=== PATIENT | male | born 1955 | race African-American/Black ===

== ENCOUNTER 2021-04-24 00:27 | Inpatient (IN) | payer MEDICARE, OTHER ==
[2021-04-24] MEDS ORDERED: Dextrose 50% Abboject 50 ML SYRINGE ONE ×2 (00:37→01:32)
[2021-04-24] MEDS ORDERED: Ketamine 50 MG/ML (10ML VIAL) ONE (00:46)
[2021-04-24] MEDS ORDERED: Norepinephrine 8 MG/0.9% NS 250 ML ONE ×3 (00:54→08:47)
[2021-04-24 01:17] LABS: Actual Bicarbonate (HCO3a) 12.6 mEq/L (22-28); Analyzer IN Cardio ER; Base Excess (BEa) -13.5 mEq/L (-2.0 to +3.0); CO2 Tension 29.7 mmHg (35.0-45.0); Calcium, Ionized (arterial) 1.08 mmol/L (1.12-1.30); Carboxyhemoglobin (COHb) 0.3 gm% (0.0-3.0); Hemoglobin (Hb) 7.1 g/dL (14.0-18.0); O2 Tension (PaO2), arterial 158.9 mmHg (> 80.0); Potassium - ABG Lab 5.51 mmol/L (3.70-5.30)
[2021-04-24 01:19] LABS: pH, Arterial 7.24 (7.35-7.45)
[2021-04-24 01:20] LABS: ALV-art Gradient 160.475 mmHg (0-20); Puncture Site RFA
[2021-04-24] MEDS ORDERED: Sodium Bicarb 50 MEQ/50 ML Abboject 8.4% SYRINGE ONE (01:20)
[2021-04-24 01:24] LABS: ALT (SGPT) 79 U/L (8-55); AST (SGOT) 412 U/L (5-34); Alkaline Phosphatase 654 U/L (40-110); Anion Gap 32 mmol/L (10-20); BUN (Urea Nitrogen) 23 mg/dL (8.4-25.7); Bilirubin, Total 0.6 mg/dL (0.2-1.2); Calc. Creatinine Clearance 0 mL/min (70-130); Calcium 7.8 mg/dL (7.8-10.44); Carbon Dioxide 11 mmol/L (23-31); Chloride 97 mmol/L (98-107); Globulin 2.1 g/dL (2.4-3.5); Glucose 109 mg/dL (80-115); Protein, Total 4.1 g/dL (5.8-8.1); Sodium 133 mmol/L (136-145)
[2021-04-24] MEDS ORDERED: Vancomycin 1 GM/200 ML BAG ONE (01:27)
[2021-04-24 01:29] LABS: Anisocytosis SLIGHT = 6-15 cells (100X) (0-5/hpf); Band 15 % (5-11); Hemoglobin 6.3 g/dL (14.0-18.0); Lymphocytes 20 % (21-51); MDiff Complete? YES; Mean Corpuscular HGB CONC 30.7 g/dL (32.0-36.0); Mean Platelet Volume 6.3 fL (7.4-10.4); Monocytes 7 % (0-10); Neutrophil 58 % (42-75); Platelet Count 502 thou/uL (130-400); Platelet Morphology Comment Appears Increased; RBC Distribution Width 18.1 % (11.5-14.5); Red Blood Cell (RBC) Count 2.33 mill/uL (4.70-6.10); White Blood Cell (WBC) Count 19.3 thou/uL (4.8-10.8)
[2021-04-24 01:30] LABS: Potassium 6.8 mmol/L (3.5-5.1)
[2021-04-24] MEDS ORDERED: Calcium Chloride 1 GM/10 ML Abboject SYRINGE ONE (01:31)
[2021-04-24] MEDS ORDERED: Insulin Regular 300 UNITS/3 ML VIAL ONE (01:32)
[2021-04-24] MEDS ORDERED: Fentanyl CADD 100 ML IV SCH ×2 (01:45→03:45)
[2021-04-24 01:48] LABS: Bilirubin Negative (Negative); Blood, Urine Trace (Negative); Glucose, Urine (Dipstick) Negative (Negative); Ketone, Urine Negative (Negative); Leukocyte Trace (Negative); Nitrite Negative (Negative); Protein, Urine (Dipstick) Negative (Neg-Trace); Specific Gravity, Urine 1.015 (1.005-1.030); Urobilinogen 0.2 mg/dL (Less than 2); pH, Urine 5.5 (5.0-9.0)
[2021-04-24 01:55] LABS: Clarity Cloudy (Clear)
[2021-04-24 02:36] LABS: HBSAg Index 0.22 S/CO (0-0.99); Hep B Surf Ag Non-Reactive S/CO (NonReactive)
[2021-04-24] MEDS ORDERED: Cefepime 2 GM in Sodium Chloride 0.9% 100 ML IVPB SCH (02:45)
[2021-04-24] MEDS ORDERED: Ondansetron PF 4 MG/2 ML Vial IVP PRN (03:17)
[2021-04-24] MEDS ORDERED: Norepinephrine 8 MG/0.9% NS 250 ML IVPB PRN (03:17)
[2021-04-24] MEDS ORDERED: Acetaminophen 650 MG Suppository PR PRN (03:17)
[2021-04-24] MEDS ORDERED: Acetaminophen 325 MG TAB PO PRN (03:17)
[2021-04-24] MEDS ORDERED: Ondansetron ODT 4 MG TAB PO PRN (03:17)
[2021-04-24 03:27] LABS: Anion Gap 33 mmol/L (10-20); BUN (Urea Nitrogen) 24 mg/dL (8.4-25.7); Calc. Creatinine Clearance 0 mL/min (70-130); Calcium 8.7 mg/dL (7.8-10.44); Carbon Dioxide 11 mmol/L (23-31); Chloride 98 mmol/L (98-107); Glucose 120 mg/dL (80-115); Sodium 137 mmol/L (136-145)
[2021-04-24] MEDS ORDERED: Ventilator Sedation Protocol 1 EACH FS SCH (03:30)
[2021-04-24] MEDS ORDERED: Fentanyl BOLUS 250 ML IVPB PRN (03:45)
[2021-04-24] MEDS ORDERED: Propofol 1,000 MG/100 ML VIAL IV PRN (03:45)
[2021-04-24] MEDS ORDERED: Lorazepam 2 MG/ML VIAL SLOW IVP PRN (03:45)
[2021-04-24] MEDS ORDERED: Morphine 2 MG/ML VIAL SLOW IVP PRN (03:45)
[2021-04-24] MEDS ORDERED: DISCONTINUE PREVIOUS NARCOTIC PAIN MEDICATIONS AND BENZODIAZEPINES FS SCH (03:45)
[2021-04-24] MEDS ORDERED: Propofol BOLUS 1,000 MG/100 ML VIAL IV PRN (03:45)
[2021-04-24 03:46] LABS: SARS-CoV-2 NAA Rapid Test Not Detected (NotDetected)
[2021-04-24] MEDS ORDERED: EPINEPHrine 4 MG in Dextrose 5% in Water 250 ML IV SCH (04:00)
[2021-04-24 04:02] LABS: Actual Bicarbonate (HCO3a) 12.7 mEq/L (22-28); Analyzer IN Cardio ER; Base Excess (BEa) -12.8 mEq/L (-2.0 to +3.0); CO2 Tension 28.2 mmHg (35.0-45.0); Calcium, Ionized (arterial) 1.17 mmol/L (1.12-1.30); Carboxyhemoglobin (COHb) 0.2 gm% (0.0-3.0); Hemoglobin (Hb) 9.8 g/dL (14.0-18.0); O2 Tension (PaO2), arterial 100.8 mmHg (> 80.0); Potassium - ABG Lab 4.85 mmol/L (3.70-5.30); pH, Arterial 7.27 (7.35-7.45)
[2021-04-24 04:03] LABS: Puncture Site RFA
[2021-04-24 04:40] LABS: Troponin I 0.031 ng/mL (< 0.028)
[2021-04-24] MEDS ORDERED: Azithromycin 500 MG in Sodium Chloride 0.9% 250 ML 250 ML IVPB SCH (07:00)
[2021-04-24 07:28] LABS: Troponin I 0.057 ng/mL (< 0.028)
[2021-04-24] MEDS ORDERED: EPINEPHrine 1 MG/10 ML Abboject SYRINGE ONE (07:31)
[2021-04-24 07:53] LABS: Actual Bicarbonate (HCO3a) 13.9 mEq/L (22-28); Analyzer IN Cardio ER; Base Excess (BEa) -10.3 mEq/L (-2.0 to +3.0); CO2 Tension 26.3 mmHg (35.0-45.0); Calcium, Ionized (arterial) 1.18 mmol/L (1.12-1.30); Carboxyhemoglobin (COHb) 0.3 gm% (0.0-3.0); Hemoglobin (Hb) 12.2 g/dL (14.0-18.0); O2 Tension (PaO2), arterial 74.4 mmHg (> 80.0); Potassium - ABG Lab 5.22 mmol/L (3.70-5.30); pH, Arterial 7.34 (7.35-7.45)
[2021-04-24 08:03] LABS: ALV-art Gradient 249.225 mmHg (0-20); Puncture Site RRA
[2021-04-24 08:44] LABS: Lactic Acid Greater than 13.4 mmol/L (0.5-2.2)
[2021-04-24] MEDS ORDERED: Azithromycin 500 MG VIAL ONE (08:54)
[2021-04-24] MEDS ORDERED: Enoxaparin Sodium 30 MG/0.3 ML SYRINGE SC SCH (09:00)
[2021-04-24 10:41] LABS: Anion Gap 30 mmol/L (10-20); BUN (Urea Nitrogen) 24 mg/dL (8.4-25.7); Calc. Creatinine Clearance 0 mL/min (70-130); Calcium 9.6 mg/dL (7.8-10.44); Carbon Dioxide 10 mmol/L (23-31); Chloride 98 mmol/L (98-107); Glucose 153 mg/dL (80-115); Sodium 132 mmol/L (136-145)
[2021-04-24] MEDS ORDERED: methylPREDNISolone Sod Succ/PF 125 MG/2 ML VIAL IVP SCH (11:30)
[2021-04-24 12:44] VITALS: BP 99/42; TEMP 100.5
[2021-04-24] MEDS ORDERED: Hydrocortisone Sod Succ/PF 100 mg/2 ml Vial IVP SCH (18:00)
== END 2021-04-24 11:35 | disposition expired | DRG 871 ==
LOC: ERS 00:27 → ERHOLD 02:44
PROVIDERS: ADMIT Student in an Organized Health Care Education/Training Program; ATTEND Student in an Organized Health Care Education/Training Program
PROC: 3E033XZ Introduction of Vasopressor into Peripheral Vein, Percutaneous Approach (ICD-10-PCS; principal; 2021-04-24)
PROC: 30233N1 Transfusion of Nonautologous Red Blood Cells into Peripheral Vein, Percutaneous Approach (ICD-10-PCS; 2021-04-24)
PROC: 0BH17EZ Insertion of Endotracheal Airway into Trachea, Via Natural or Artificial Opening (ICD-10-PCS; 2021-04-24)
PROC: 5A1935Z Respiratory Ventilation, Less than 24 Consecutive Hours (ICD-10-PCS; 2021-04-24)
PROC: 02H633Z Insertion of Infusion Device into Right Atrium, Percutaneous Approach (ICD-10-PCS; 2021-04-24)
DX: A41.9 Sepsis, unspecified organism (principal); R65.21 Severe sepsis with septic shock; J96.01 Acute respiratory failure with hypoxia; J18.9 Pneumonia, unspecified organism; N17.9 Acute kidney failure, unspecified; G93.1 Anoxic brain damage, not elsewhere classified; C79.51 Secondary malignant neoplasm of bone; E87.1 Hypo-osmolality and hyponatremia; E44.0 Moderate protein-calorie malnutrition; C79.31 Secondary malignant neoplasm of brain; E87.2 Acidosis; G93.40 Encephalopathy, unspecified; Z66 Do not resuscitate; I46.9 Cardiac arrest, cause unspecified; E87.5 Hyperkalemia; D64.9 Anemia, unspecified; C61 Malignant neoplasm of prostate; N18.30 Chronic kidney disease, stage 3 unspecified; R57.0 Cardiogenic shock; E16.2 Hypoglycemia, unspecified; G25.3 Myoclonus; Z98.890 Other specified postprocedural states; Z90.79 Acquired absence of other genital organ(s); Z20.822 Contact with and (suspected) exposure to COVID-19; Z78.1 Physical restraint status
CPT/HCPCS: 36415; 36416; 36430; 36600; 70450; 71045; 74018; 80053; 81003; 81015; 82805; 83605; 84484; 85025; 86850; 86900; 86901; 87040; 87340; 93005; 94002; 95816; 95819; 95957; J0171; J0456; J0692; J1815; J3010; J3370; J3490; J7050; J7070; P9016; U0002; U0003; U0005